=== PATIENT | female | born 1955 | race Caucasian/White ===

== ENCOUNTER 2021-07-17 13:21 | Inpatient (IN) | payer OTHER ==
[2021-07-17 14:47] LABS: BASO % 0.5 % (0-2.0); EOS % 0.2 % (0-4.5); HEMATOCRIT 48.2 % (32.4-45.2); HEMOGLOBIN 16.1 GM/dL (10.7-15.3); MCH 27.2 pg (25.7-33.7); MCHC 33.5 g/dl (32.0-36.0); MEAN CELL VOLUME 81.1 fl (80-96); MEAN PLT VOLUME 8.6 fl (7.5-11.1); MONO % 2.5 % (3.8-10.2); NEUT % 88.8 % (42.8-82.8); PLATELET COUNT 351 10^3/uL (134-434); RBC 5.94 M/mm3 (3.60-5.2); RDW 14.4 % (11.6-15.6)
[2021-07-17] MEDS ORDERED: KETOROLAC TROMETHAMINE 15 MG/ML VIAL IVPUSH ONE (14:47)
[2021-07-17 14:55] LABS: INR 0.99 (0.83-1.09)
[2021-07-17 14:57] LABS: ACTIVATED PTT 31.2 SECONDS (25.2-36.5)
[2021-07-17 14:58] LABS: CHLORIDE 104 mmol/L (98-107); SODIUM 138 mmol/L (136-145)
[2021-07-17 15:00] LABS: ALBUMIN 4.1 g/dl (3.4-5.0); BLOOD UREA NITROGEN 13.6 mg/dL (7-18); CALCIUM 9.2 mg/dL (8.5-10.1); GLUCOSE,RANDOM 128 mg/dL (74-106)
[2021-07-17 15:01] LABS: ANION GAP 6 MMOL/L (8-16); CO2 28 mmol/L (21-32); LIPASE 111 U/L (73-393); MAGNESIUM 2.2 mg/dL (1.8-2.4)
[2021-07-17 15:03] LABS: SGOT/AST 20 U/L (15-37)
[2021-07-17 15:04] LABS: CREATININE 0.9 mg/dL (0.55-1.3)
[2021-07-17 15:05] LABS: BILIRUBIN,TOTAL 0.7 mg/dL (0.2-1); TOT PROT 8.7 g/dl (6.4-8.2)
[2021-07-17 15:06] LABS: ALK PHOS 115 U/L (45-117)
[2021-07-17] MEDS ORDERED: HYDROmorphone HCL CARPU-JECT 2 MG/1 ML DISP.SYRIN IVPUSH ONE ×2 (15:12→18:22)
[2021-07-17 15:15] LABS: SGPT/ALT 15 U/L (13-61)
[2021-07-17] MEDS ORDERED: HYDROmorphone HCl 2 MG/ML VIAL ONE ×2 (15:21→18:32)
[2021-07-17] MEDS ORDERED: KETOROLAC TROMETHAMINE 15 MG/ML VIAL ONE (15:21)
[2021-07-17 15:35] LABS: EPI CELLS 14 /uL (0-25.1); HYALINE CASTS 0 /uL (0-3.1); PH,URINE 7.5 (5.0-8.0); URINE APPEARANCE CLEAR; URINE BACTERIA 1 /uL (0-1359); URINE BILIRUBIN NEGATIVE (NEGATIVE); URINE COLOR YELLOW; URINE GLUCOSE (UA) NEGATIVE (NEGATIVE); URINE KETONE TRACE (NEGATIVE); URINE LEUK ESTERASE NEGATIVE (NEGATIVE); URINE NITRITE NEGATIVE (NEGATIVE); URINE PROTEIN 3+ (NEGATIVE); URINE RBC 220 /uL (0-23.9); URINE UROBILINOGEN 0.2 mg/dL (0.2-1.0); URINE WBC 18 /uL (0-25.8)
[2021-07-17] MEDS ORDERED: ACETAMINOPHEN 1000 MG/100 ML VIAL (NON FORMULARY) IVPB PRN (18:56)
[2021-07-17] MEDS ORDERED: LACTATED RINGERS SOLUTION 1,000 ML/1,000 ML INFUS.BAG IV SCH (19:00)
[2021-07-17] MEDS ORDERED: CEFTRIAXONE 2 GM/100 ML BAG IVPB SCH (19:00)
[2021-07-17] MEDS ORDERED: ACETAMINOPHEN INJECTION 100 ML IVPB ONE (20:41)
[2021-07-17] MEDS ORDERED: CEFTRIAXONE 2 GM/100 ML BAG IVPB ONE (20:41)
[2021-07-17] MEDS ORDERED: morphine SULFATE 4 MG/ML VIAL ONE (20:51)
[2021-07-17] MEDS: ACETAMINOPHEN 1000 MG/100 ML VIAL (NON FORMULARY) IVPB PRN (20:57)
[2021-07-17] MEDS ORDERED: oxyCODONE HCL 10 MG SUSTAINED ACTING TABLET PO PRN (22:34)
[2021-07-17] MEDS: morphine SULFATE 4 MG/ML VIAL IVPUSH PRN (23:22)
[2021-07-18 00:02] VITALS: BMI 28.0
[2021-07-18 02:29] LABS: BASO % 0.3 % (0-2.0); EOS % 0.3 % (0-4.5); HEMATOCRIT 47.2 % (32.4-45.2); HEMOGLOBIN 15.8 GM/dL (10.7-15.3); LYMPH % 11.3 % (8-40); MCH 27.2 pg (25.7-33.7); MCHC 33.4 g/dl (32.0-36.0); MEAN CELL VOLUME 81.5 fl (80-96); MEAN PLT VOLUME 8.7 fl (7.5-11.1); MONO % 5.4 % (3.8-10.2); NEUT % 82.7 % (42.8-82.8); PLATELET COUNT 347 10^3/uL (134-434); RDW 14.4 % (11.6-15.6)
[2021-07-18] MEDS: ACETAMINOPHEN 1000 MG/100 ML VIAL (NON FORMULARY) IVPB PRN ×2 (03:27→12:13)
[2021-07-18] MEDS: morphine SULFATE 4 MG/ML VIAL IVPUSH PRN ×2 (03:54→07:48)
[2021-07-18 07:45] LABS: HEMATOCRIT 47.2 % (32.4-45.2); HEMOGLOBIN 15.7 GM/dL (10.7-15.3); MCHC 33.3 g/dl (32.0-36.0); MEAN CELL VOLUME 81.1 fl (80-96); MEAN PLT VOLUME 8.9 fl (7.5-11.1); PLATELET COUNT 362 10^3/uL (134-434); RBC 5.83 M/mm3 (3.60-5.2); RDW 14.5 % (11.6-15.6); WHITE BLOOD COUNT 17.6 K/mm3 (4.0-10.0)
[2021-07-18 08:03] LABS: CALCIUM 9.5 mg/dL (8.5-10.1)
[2021-07-18 08:04] LABS: ALBUMIN 3.7 g/dl (3.4-5.0)
[2021-07-18 08:07] LABS: PHOSPHOROUS 3.4 mg/dL (2.5-4.9)
[2021-07-18] MEDS ORDERED: PT OWN MED DRAWER 7, Y5N ONE (08:56)
[2021-07-18] MEDS: amLODIPine BESYLATE 5 MG TABLET (FP) PO SCH ×2 (09:14→10:07)
[2021-07-18] MEDS: LISINOPRIL 20 MG TABLET PO SCH (09:14)
[2021-07-18] MEDS ORDERED: SODIUM CHLORIDE 0.9%/KCL 20 MEQ/1,000 ML INFUS.BAG IV SCH (09:15)
[2021-07-18] MEDS: diazePAM 5 MG TABLET PO SCH (09:15)
[2021-07-18] MEDS ORDERED: POTASSIUM CHLORIDE 40 MEQ in SODIUM CHLORIDE 1,000 ML IV SCH (09:45)
[2021-07-18] MEDS ORDERED: PANTOPRAZOLE 40 MG TABLET PO SCH (10:00)
[2021-07-18] MEDS ORDERED: PANTOPRAZOLE SODIUM 40 MG VIAL IVPUSH SCH (10:00)
[2021-07-18] MEDS ORDERED: PIPERACILLIN/TAZOB 3.375 GM 3.375 GM in DEXTROSE 5%-WATER - 50 ML IVPB SCH (10:00)
[2021-07-18] MEDS ORDERED: PNEUMOC 13-VAL CONJ-DIP CRM/PF 0.5 ML DISP.SYRIN IM ONE (10:00)
[2021-07-18] MEDS ORDERED: ENOXAPARIN NA (PORCINE) 40 MG/0.4 ML DISP.SYRIN SQ SCH (10:00)
[2021-07-18] MEDS ORDERED: PIPERACILLIN/TAZOBACTAM 3.375 GM VIAL IVPB ONE ×2 (10:10→16:52)
[2021-07-18] MEDS ORDERED: DEXTROSE 5%-WATER - 50 ML IVPB ONE ×2 (10:10→16:52)
[2021-07-18] MEDS: HYDROmorphone HCl 2 MG/ML VIAL IVPB PRN ×3 (10:28→20:16)
[2021-07-18] MEDS ORDERED: METOCLOPRAMIDE HCL INJECTION 10 MG/2 ML VIAL IVPUSH ONE (12:07)
[2021-07-18] MEDS: POTASSIUM CHLORIDE 40 MEQ in SODIUM CHLORIDE 1,000 ML IV SCH ×2 (12:30→23:40)
[2021-07-18] MEDS: ATENOLOL 50 MG TABLET (FP) PO SCH (12:30)
[2021-07-18] MEDS ORDERED: amLODIPine BESYLATE 5 MG TABLET (FP) PO SCH (15:00)
[2021-07-18] MEDS ORDERED: PATIENT'S OWN MEDICATION (NON-FORMULARY) (Lisinopril [Lisinopril] 40 MG Tablet) PO SCH (15:00)
[2021-07-18] MEDS: oxyCODONE HCL 10 MG SUSTAINED ACTING TABLET PO SCH ×2 (15:24→21:38)
[2021-07-18] MEDS: PIPERACILLIN/TAZOB 3.375 GM 3.375 GM in DEXTROSE 5%-WATER - 50 ML IVPB SCH (17:00)
[2021-07-18] MEDS: CITALOPRAM HYDROBROMIDE 20 MG TABLET PO SCH (21:39)
[2021-07-18] MEDS ORDERED: CITALOPRAM HYDROBROMIDE 40 MG PO SCH (22:00)
[2021-07-18] MEDS ORDERED: MELATONIN 5 MG TABLETS PO ONE (23:25)
[2021-07-19] MEDS: POTASSIUM CHLORIDE 40 MEQ in SODIUM CHLORIDE 1,000 ML IV SCH
[2021-07-19] MEDS ORDERED: PIPERACILLIN/TAZOBACTAM 3.375 GM VIAL IVPB ONE ×3 (00:30→16:10)
[2021-07-19] MEDS ORDERED: DEXTROSE 5%-WATER - 50 ML IVPB ONE ×3 (00:30→16:10)
[2021-07-19] MEDS: PIPERACILLIN/TAZOB 3.375 GM 3.375 GM in DEXTROSE 5%-WATER - 50 ML IVPB SCH ×3 (01:03→17:06)
[2021-07-19] MEDS: HYDROmorphone HCl 2 MG/ML VIAL IVPB PRN ×5 (03:12→20:17)
[2021-07-19 07:17] LABS: BASO % 0.5 % (0-2.0); EOS % 0.6 % (0-4.5); HEMATOCRIT 42.4 % (32.4-45.2); HEMOGLOBIN 14.2 GM/dL (10.7-15.3); LYMPH % 9.7 % (8-40); MCH 26.9 pg (25.7-33.7); MCHC 33.4 g/dl (32.0-36.0); MEAN CELL VOLUME 80.7 fl (80-96); MEAN PLT VOLUME 8.7 fl (7.5-11.1); MONO % 5.7 % (3.8-10.2); NEUT % 83.5 % (42.8-82.8); PLATELET COUNT 272 10^3/uL (134-434); RBC 5.25 M/mm3 (3.60-5.2); RDW 14.4 % (11.6-15.6); WHITE BLOOD COUNT 17.1 K/mm3 (4.0-10.0)
[2021-07-19 07:36] LABS: BLOOD UREA NITROGEN 9.3 mg/dL (7-18); CALCIUM 8.8 mg/dL (8.5-10.1)
[2021-07-19 07:37] LABS: MAGNESIUM 1.6 mg/dL (1.8-2.4)
[2021-07-19 07:40] LABS: CREATININE 0.8 mg/dL (0.55-1.3); PHOSPHOROUS 2.2 mg/dL (2.5-4.9)
[2021-07-19] MEDS ORDERED: MAGNESIUM SULF 50% (8.12 MEQ/2 ML-1 GM VIAL) IVPB ONE (10:30)
[2021-07-19] MEDS: ATENOLOL 50 MG TABLET (FP) PO SCH (11:09)
[2021-07-19] MEDS: diazePAM 5 MG TABLET PO SCH (11:09)
[2021-07-19] MEDS: LISINOPRIL 20 MG TABLET PO SCH (11:09)
[2021-07-19] MEDS: amLODIPine BESYLATE 5 MG TABLET (FP) PO SCH (11:10)
[2021-07-19] MEDS: oxyCODONE HCL 10 MG SUSTAINED ACTING TABLET PO SCH ×2 (11:10→21:12)
[2021-07-19] MEDS ORDERED: DEXTROSE 5%-NORMAL SALINE 1,000 ML IV SCH (14:15)
[2021-07-19] MEDS: CITALOPRAM HYDROBROMIDE 20 MG TABLET PO SCH (21:09)
[2021-07-20] MEDS ORDERED: PIPERACILLIN/TAZOBACTAM 3.375 GM VIAL IVPB ONE ×3 (00:59→17:43)
[2021-07-20] MEDS ORDERED: DEXTROSE 5%-WATER - 50 ML IVPB ONE ×3 (01:00→17:43)
[2021-07-20] MEDS: PIPERACILLIN/TAZOB 3.375 GM 3.375 GM in DEXTROSE 5%-WATER - 50 ML IVPB SCH ×3 (01:04→17:53)
[2021-07-20] MEDS: HYDROmorphone HCl 2 MG/ML VIAL IVPB PRN ×5 (01:16→22:11)
[2021-07-20 08:10] LABS: HEMATOCRIT 39.8 % (32.4-45.2); HEMOGLOBIN 13.5 GM/dL (10.7-15.3); MCH 27.3 pg (25.7-33.7); MCHC 33.9 g/dl (32.0-36.0); MEAN CELL VOLUME 80.5 fl (80-96); MEAN PLT VOLUME 8.6 fl (7.5-11.1); PLATELET COUNT 233 10^3/uL (134-434); RBC 4.95 M/mm3 (3.60-5.2); RDW 14.8 % (11.6-15.6); WHITE BLOOD COUNT 12.8 K/mm3 (4.0-10.0)
[2021-07-20 08:34] LABS: CALCIUM 8.5 mg/dL (8.5-10.1)
[2021-07-20 08:35] LABS: BLOOD UREA NITROGEN 9.7 mg/dL (7-18)
[2021-07-20 08:38] LABS: CREATININE 0.8 mg/dL (0.55-1.3)
[2021-07-20] MEDS ORDERED: PT OWN MED DRAWER 7, Y5N ONE (10:00)
[2021-07-20] MEDS: LISINOPRIL 20 MG TABLET PO SCH (10:04)
[2021-07-20] MEDS: diazePAM 5 MG TABLET PO SCH (10:04)
[2021-07-20] MEDS: amLODIPine BESYLATE 5 MG TABLET (FP) PO SCH (10:04)
[2021-07-20] MEDS: oxyCODONE HCL 10 MG SUSTAINED ACTING TABLET PO SCH ×2 (10:04→21:01)
[2021-07-20] MEDS: ATENOLOL 50 MG TABLET (FP) PO SCH (10:04)
[2021-07-20] MEDS: D5-1/2NS+40 MEQ KCL - 40 MEQ/1,000 ML INFUS.BAG IV SCH (10:58)
[2021-07-20] MEDS: CITALOPRAM HYDROBROMIDE 20 MG TABLET PO SCH (21:01)
[2021-07-21] MEDS ORDERED: PIPERACILLIN/TAZOBACTAM 3.375 GM VIAL IVPB ONE ×3 (01:20→18:33)
[2021-07-21] MEDS ORDERED: DEXTROSE 5%-WATER - 50 ML IVPB ONE ×3 (01:20→18:33)
[2021-07-21] MEDS: D5-1/2NS+40 MEQ KCL - 40 MEQ/1,000 ML INFUS.BAG IV SCH ×2 (01:21→09:49)
[2021-07-21] MEDS: PIPERACILLIN/TAZOB 3.375 GM 3.375 GM in DEXTROSE 5%-WATER - 50 ML IVPB SCH ×3 (01:21→18:42)
[2021-07-21] MEDS: HYDROmorphone HCl 2 MG/ML VIAL IVPB PRN ×5 (02:41→22:05)
[2021-07-21 07:35] LABS: HEMOGLOBIN 12.7 GM/dL (10.7-15.3); MCHC 33.5 g/dl (32.0-36.0); MEAN CELL VOLUME 80.7 fl (80-96); MEAN PLT VOLUME 8.5 fl (7.5-11.1); PLATELET COUNT 209 10^3/uL (134-434); RBC 4.71 M/mm3 (3.60-5.2); RDW 14.6 % (11.6-15.6); WHITE BLOOD COUNT 8.3 K/mm3 (4.0-10.0)
[2021-07-21 07:52] LABS: CALCIUM 8.7 mg/dL (8.5-10.1)
[2021-07-21 07:53] LABS: BLOOD UREA NITROGEN 6.7 mg/dL (7-18)
[2021-07-21 07:56] LABS: CREATININE 0.8 mg/dL (0.55-1.3)
[2021-07-21] MEDS: oxyCODONE HCL 10 MG SUSTAINED ACTING TABLET PO SCH ×2 (09:48→21:33)
[2021-07-21] MEDS: diazePAM 5 MG TABLET PO SCH (09:48)
[2021-07-21] MEDS: ATENOLOL 50 MG TABLET (FP) PO SCH (09:49)
[2021-07-21] MEDS: LISINOPRIL 20 MG TABLET PO SCH (09:49)
[2021-07-21] MEDS: amLODIPine BESYLATE 5 MG TABLET (FP) PO SCH (09:49)
[2021-07-21] MEDS: CITALOPRAM HYDROBROMIDE 20 MG TABLET PO SCH (21:33)
[2021-07-22] MEDS ORDERED: PIPERACILLIN/TAZOBACTAM 3.375 GM VIAL IVPB ONE ×3 (01:27→17:30)
[2021-07-22] MEDS ORDERED: DEXTROSE 5%-WATER - 50 ML IVPB ONE ×3 (01:27→17:30)
[2021-07-22] MEDS: PIPERACILLIN/TAZOB 3.375 GM 3.375 GM in DEXTROSE 5%-WATER - 50 ML IVPB SCH ×3 (02:21→17:39)
[2021-07-22 06:29] LABS: HEMATOCRIT 39.9 % (32.4-45.2); HEMOGLOBIN 13.4 GM/dL (10.7-15.3); MCH 27.5 pg (25.7-33.7); MCHC 33.6 g/dl (32.0-36.0); MEAN CELL VOLUME 81.8 fl (80-96); MEAN PLT VOLUME 9.1 fl (7.5-11.1); PLATELET COUNT 252 10^3/uL (134-434); RBC 4.88 M/mm3 (3.60-5.2); RDW 14.5 % (11.6-15.6); WHITE BLOOD COUNT 7.5 K/mm3 (4.0-10.0)
[2021-07-22 06:48] LABS: CALCIUM 9.1 mg/dL (8.5-10.1)
[2021-07-22 06:49] LABS: BLOOD UREA NITROGEN 5.4 mg/dL (7-18)
[2021-07-22 06:52] LABS: CREATININE 0.7 mg/dL (0.55-1.3)
[2021-07-22] MEDS: HYDROmorphone HCl 2 MG/ML VIAL IVPB PRN (07:08)
[2021-07-22] MEDS: ATENOLOL 50 MG TABLET (FP) PO SCH (09:36)
[2021-07-22] MEDS: LISINOPRIL 20 MG TABLET PO SCH (09:37)
[2021-07-22] MEDS: amLODIPine BESYLATE 5 MG TABLET (FP) PO SCH (09:37)
[2021-07-22] MEDS: oxyCODONE HCL 10 MG SUSTAINED ACTING TABLET PO SCH (09:39)
[2021-07-22] MEDS: diazePAM 5 MG TABLET PO SCH (09:41)
[2021-07-22] MEDS ORDERED: HYDROmorphone HCl 2 MG/ML VIAL IVPB ONE (12:42)
[2021-07-22 14:03] VITALS: BP 100/69; PULSE 80; TEMP 98.1
== END 2021-07-22 18:21 | disposition home or self-care (01) | DRG 394 ==
LOC: JER 13:21 → JERBED 18:34 → J7W 22:49
PROVIDERS: ADMIT Internal Medicine; ATTEND Internal Medicine
PROC: 0DBN8ZX Excision of Sigmoid Colon, Via Natural or Artificial Opening Endoscopic, Diagnostic (ICD-10-PCS; principal; 2021-07-19 09:15)
DX: K55.039 Acute (reversible) ischemia of large intestine, extent unspecified (principal); F11.20 Opioid dependence, uncomplicated; I10 Essential (primary) hypertension; G89.29 Other chronic pain; E78.5 Hyperlipidemia, unspecified; Z87.442 Personal history of urinary calculi; N28.1 Cyst of kidney, acquired; M41.9 Scoliosis, unspecified; R94.31 Abnormal electrocardiogram [ECG] [EKG]; D75.1 Secondary polycythemia; F41.8 Other specified anxiety disorders; K52.9 Noninfective gastroenteritis and colitis, unspecified; D72.829 Elevated white blood cell count, unspecified; K64.8 Other hemorrhoids
CPT/HCPCS: 36415; 71045-TC-FY; 74176-TC; 74177-TC; 76775-TC; 76856-TC; 80048; 80053; 81003; 82272; 82550; 83605; 83690; 83735; 84100; 84484; 85025; 85027; 85610; 85651; 85730; 86140; 86850; 86900; 86901; 87040; 87045; 87046; 87086; 87324; 87449; 93005; 93010; 93971-TC; 99285-25; C9803; J0131; Q9967; U0003; U0005